=== PATIENT | female | born 1980 | race Caucasian/White ===

== ENCOUNTER 2020-01-19 22:30 | Emergency (ER) | payer SELFPAY ==
[~2020-01-19] VITALS: Ht 149.9 cm; Wt 110.2 kg
[~2020-01-19 22:30] MED LIST: ASPI-1822 PO; CARV3.12 PO; LISI10TA11 PO; SIMV20TA1 PO
--- NOTE | 2020-01-19 22:45 | NUR ---
PT AMBULATED TO BED 12 WITH STEADY GAIT.
--- NOTE | 2020-01-19 22:46 | NUR ---
PT C/O RT FLANK PAIN X 3 MONTHS 10/10. ADMITS TO NAUSEA BUT NO VOMIT. PER PT, HER PRIMARY DOCTOR TALK HER THAT SHE HAS A CYST. PT DENIES ANY FEVER, CP, SOB, OR COUGH AT THIS TIME; PATIENT STATES PAIN OF 10/10 AT THIS TIME; VSS; PATIENT POSITIONED FOR COMFORT; HOB ELEVATED; BEDRAILS UP X1; BED DOWN. ER MD MADE AWARE OF PT STATUS.
--- NOTE | 2020-01-19 22:53 | NUR ---
Dr. Trent examining patient.
[2020-01-19] MEDS ORDERED: KETOROLAC 30 MG/ML VIAL IVP ONE (23:00)
[2020-01-19] MEDS ORDERED: NACL 0.9% 1,000 ML IV ONE (23:00)
[2020-01-19 23:18] LABS: BASOPHILS % (AUTO) 0.3 % (0.0-2.0); EOSINOPHILS # (AUTO) 0.2 K/uL (0-0.4); EOSINOPHILS % (AUTO) 2.4 % (0.0-4.0); HEMATOCRIT 30.9 % (36-48); HEMOGLOBIN 10.3 g/dL (12.0-16.0); LYMPHOCYTES # (AUTO) 2.6 K/uL (2.5-16.5); LYMPHOCYTES % (AUTO) 31.5 % (20.5-51.1); MEAN CORPUSCULAR HEMOGLOBIN 31 pg (27-31); MEAN CORPUSCULAR HGB CONC 33 g/dL (33-37); MONOCYTES # (AUTO) 0.7 K/uL (0.8-1.0); MONOCYTES % (AUTO) 8.9 % (1.7-9.3); NEUTROPHILS # (AUTO) 4.6 K/uL (1.8-7.7); NEUTROPHILS % (AUTO) 56.9 % (42.2-75.2); PLATELET COUNT (AUTO) 232 K/uL (140-450); RED BLOOD CELL COUNT(AUTO) 3.36 MIL/uL (4.20-5.40); WHITE BLOOD COUNT (AUTO) 8.1 K/uL (4.8-10.8)
--- NOTE | 2020-01-19 23:21 | NUR ---
PT TAKEN TO CT
[2020-01-19 23:31] LABS: APPEARANCE,URINE CLEAR (CLEAR); BLOOD, URINE TRACE (NEGATIVE); COLOR,URINE YELLOW (YELLOW); UGLUCOSE NEGATIVE (NEGATIVE)
[2020-01-19 23:32] LABS: BILIRUBIN,URINE NEGATIVE (NEGATIVE); LEUKOCYTE ESTERASE ,URINE NEGATIVE (NEGATIVE); NITRITE, URINE NEGATIVE (NEGATIVE)
[2020-01-19 23:34] LABS: ANION GAP 17.6 (8-16); CARBON DIOXIDE 19.8 mmol/L (21-32); CREATININE 2.4 mg/dL (0.6-1.3); POTASSIUM 4.4 mmol/L (3.5-5.1); TOTAL BILIRUBIN 0.1 mg/dL (0.0-1.0)
[2020-01-19 23:41] LABS: RBC,URINE 0-5 /HPF (0-5)
--- NOTE | 2020-01-20 00:33 | NUR ---
Pt report given to JIMBO Hernandez. Transfer of care at this time.
[2020-01-20 01:35] VITALS: BP 128/85
--- NOTE | 2020-01-20 01:36 | NUR ---
Patient discharged with v/s stable. Written and verbal after care instructions given and explained. Patient verbalized understanding. Ambulatory with steady gait. All questions addressed prior to discharge. Advised to follow up with PMD.
== END 2020-01-20 01:36 | disposition home or self-care (01) ==
LOC: MED 22:30
DX: N18.9 Chronic kidney disease, unspecified (principal)
CPT/HCPCS: 36415; 74177; 80053; 81001; 81025; 85025; 87086; 96374; 99285; J1885; J7030; Q9967

== ENCOUNTER 2021-05-30 11:41 | Inpatient (IN) | payer MEDICAID, SELFPAY ==
[~2021-05-30] VITALS: Ht 144.8 cm; Wt 108.9 kg
[~2021-05-30 11:41] MED LIST changes: +LISI-486 PO; -LISI10TA11 PO
[2021-05-30 11:45] VITALS: BP 147/77
[2021-05-30 13:20] LABS: BASOPHILS % (AUTO) 0.1 % (0.0-2.0); EOSINOPHILS # (AUTO) 0.2 K/uL (0-0.4); HEMATOCRIT 24.4 % (36-48); HEMOGLOBIN 8.1 g/dL (12.0-16.0); LYMPHOCYTES # (AUTO) 1.9 K/uL (2.5-16.5); LYMPHOCYTES % (AUTO) 22.6 % (20.5-51.1); MEAN CORPUSCULAR HEMOGLOBIN 28 pg (27-31); MEAN CORPUSCULAR HGB CONC 33 g/dL (33-37); MEAN CORPUSCULAR VOLUME 83.1 fL (80-94); MONOCYTES # (AUTO) 0.6 K/uL (0.8-1.0); NEUTROPHILS # (AUTO) 5.7 K/uL (1.8-7.7); NEUTROPHILS % (AUTO) 68.3 % (42.2-75.2); PLATELET COUNT (AUTO) 286 K/uL (140-450); RED BLOOD CELL COUNT(AUTO) 2.93 MIL/uL (4.20-5.40); RED CELL DISTRIBUTION WIDTH 14.2 % (11.6-13.7); WHITE BLOOD COUNT (AUTO) 8.3 K/uL (4.8-10.8)
--- NOTE | 2021-05-30 13:29 | NUR ---
41/F BIB SELF FOR ABNORMAL LABS. STATES SHE WAS SEEN AT HER DOCTORS OFFICE ON 05/28/21 AND HAD LABS DRAWN AND HAD A HEMOGLOBIN OF 8.2, STATING HE WANTED HER LABS REDRAWN. PATIENT STATES SHE HAS BEEN INCREASINGLY MORE FATIGUED LATELY BUT DENIES CP, SOB, FEVER OR CHILLS. DENIES ANY PAIN, DIZZINESS OR BLURRED VISION, NO OTHER COMPLAINTS AT THIS TIME.
[2021-05-30 13:35] LABS: ALBUMIN 2.8 g/dL (3.4-5.0); ANION GAP 16.8 (8-16); CREATININE 2.6 mg/dL (0.6-1.3); POTASSIUM 4.8 mmol/L (3.5-5.1); TOTAL BILIRUBIN 0.1 mg/dL (0.0-1.0)
--- NOTE | 2021-05-30 14:20 | NUR ---
MANAGER INFORMATION AT BEDSIDE.
--- NOTE | 2021-05-30 14:20 | NUR ---
RAMON SWAB COLLECTED AND WALKED TO LAB.
--- NOTE | 2021-05-30 15:35 | NUR ---
PATIENT PLACED ON BEDSIDE TRADEMARK ATTORNEY, BED ADJUSTED FOR COMFORT, PROVIDED WARM BLANKET. WILL CONTINUE TO MONITOR.
[2021-05-30] MEDS ORDERED: DOCUSATE SODIUM 100 MG GELCAP PO PRN (16:10)
[2021-05-30] MEDS ORDERED: ONDANSETRON 4 MG/2 ML VIAL IVP PRN (16:10)
[2021-05-30] MEDS ORDERED: ZOLPIDEM 5 MG TAB PO PRN (16:10)
[2021-05-30] MEDS ORDERED: LORazepam 2 MG/ML VIAL IM/IVP PRN (16:10)
[2021-05-30] MEDS ORDERED: MORPHINE SULFATE 2 MG/ML SYR IVP PRN (16:10)
[2021-05-30] MEDS ORDERED: MAG SULF 2000 MG/WATER PREMIX 50 ML IV PRN (16:10)
[2021-05-30] MEDS ORDERED: POTASSIUM CHLORIDE 10 MEQ TABER PO PRN (16:10)
[2021-05-30] MEDS ORDERED: SODIUM PHOS / POTASSIUM PHOS 1 PKT PDR PO PRN (16:10)
[2021-05-30] MEDS ORDERED: HYDROcodone/APAP 5/325 MG 1 TAB TAB PO PRN (16:10)
--- NOTE | 2021-05-30 16:30 | NUR ---
PATIENT AMBULATED TO RESTROOM TO PROVIDE URINE SAMPLE.
[2021-05-30] MEDS: NACL 0.9% 1,000 ML IV SCH (16:48)
--- NOTE | 2021-05-30 17:10 | NUR ---
PATIENT PROVIDED SMALL AMOUNT OF URINE, SAMPLE WALKED TO LAB.
[2021-05-30 17:23] LABS: PROTHROMBIN TIME 9.1 secs (10.8-13.4)
[2021-05-30 17:26] LABS: CHOL/HDL RATIO 3.2 (1-4.5); FREE T4 (FREE THYROXINE) 0.95 ng/dL (0.76-1.46); PHOSPHORUS 4.3 mg/dL (2.5-4.9); THYROID STIMULATING HORMONE 2.84 uIU/mL (0.34-3.74)
--- NOTE | 2021-05-30 17:45 | NUR ---
PATIENT APPEARS TO BE RESTING, LIGHTS DIMMED FOR COMFORT. PT ON BEDSIDE POLYMERIZATION OVEN TENDER, WILL CONTINUE TO MONITOR.
--- NOTE | 2021-05-30 18:45 | NUR ---
PATIENT PROVIDED WITH DINNER TRAY, SITTING UP IN BED EATING. ON BEDSIDE JUNIOR WEB DESIGNER, ALL NEEDS MET AT THIS TIME.
[2021-05-30 19:03] LABS: APPEARANCE,URINE CLEAR (CLEAR); BILIRUBIN,URINE NEGATIVE (NEGATIVE); BLOOD, URINE TRACE-I (NEGATIVE); COLOR,URINE YELLOW (YELLOW); LEUKOCYTE ESTERASE ,URINE NEGATIVE (NEGATIVE); NITRITE, URINE NEGATIVE (NEGATIVE); UGLUCOSE NEGATIVE (NEGATIVE)
--- NOTE | 2021-05-30 19:17 | NUR ---
Pt report given to RAGINI CHOI. Transfer of care at this time.
[2021-05-30 19:46] LABS: BARBITURATE, URINE NEGATIVE ng/ml (NEG <=200); BENZODIAZEPINE, URINE NEGATIVE ng/mL (NEG <=200); CANNABINOID, URINE NEGATIVE ng/mL (NEG <=50); COCAINE, URINE NEGATIVE ng/mL (NEG <=300); OPIATE, URINE NEGATIVE ng/mL (NEG <=2000); PHENCYCLIDINE SCREEN,URINE NEGATIVE ng/mL (NEG <=25)
--- NOTE | 2021-05-30 20:20 | NUR ---
PATIENT ALERT ORIENTED NOT COMPLAINING OF PAIN VITALS SIGNS IN NORMAL LIMITS ABLE TO WALK AND GO THE RESTROOM BY HER SELF STABLE AT THIS TIME //Harvey CHOI
--- NOTE | 2021-05-30 20:52 | NUR ---
PATIENT ALERT ORIENT NOT COMPLAINING OF PAIN AT THIS TIME VITALS SIGNS IN NORMAL LIMITS STABLE ADMITED TO THE FLOOR ROOM 105 B REPORT AND ENDORSE OF CARE TO LYNN CHOI //Harvey RN
[2021-05-30 22:00] VITALS: BP 130/65
--- NOTE | 2021-05-30 22:00 | NUR ---
Admitted from ER TO TELEMETRY UNIT , with chief complaint of PER PCP SHE NEEDS BLOOD TRANSFUSION BECAUSE HER HEMOGLOBIN IS LOW, 41 y/o ,Female, Cooperative, AWAKE, A/OX4, URDU SPEAKING.RESPIRATION EVEN AND UNLABORED. LUNGS CLEAR ON BILATERAL AUSCULTATION. ABDOMEN SOFT, NON-TENDER WITH POSITIVE BOWEL SOUNDS ON ALL QUADRANTS. AMBULATORY BY HERSELF. HEAD TO TOE ASSESSMENT DONE WITH CHARGE NURSE HUGO, SKIN IS INTACT. DENIES PAIN 0/10. oriented to call light, bed, phone,television, bathroom, smoking policy,visiting hours, procedures, ID bracelet on. Belongings list checked. ADMISSION DATA AND PATIENT ORIENTATION AND INSTRUCTION DONE WITH HELP OF APPLICATIONS PROGRAMMER SAYDA #[id number]. PATIENT VERBALIZED UNDERSTANDING. DENIES PAIN 0/10.
[2021-05-31] VITALS: BP 129/61
--- NOTE | 2021-05-31 | NUR ---
COMPLAINED OF PAIN IN THE IV SITE. CHECKED WITH SALINE FLUSH WITH GOOD BACK FLOW. PUT ON A PILLOW FOR SUPPORT. INSTRUCTED PATIENT TO OBSERVE SITE AND CALL NURSE WHEN SOMETHING UNUSUAL IS NOTED. VERBALIZED UNDERSTANDING.
--- NOTE | 2021-05-31 00:19 | NUR ---
Patient's Plan of Care was discussed and reviewed with RAILROAD WATCHMAN: LYNN HARDIN
--- NOTE | 2021-05-31 02:00 | NUR ---
SLEEPING COMFORTABLY ON HER RIGHT SIDE. RESPIRATION EVEN AND UNLABORED.
[2021-05-31] MEDS: NACL 0.9% 1,000 ML IV SCH ×3 (02:30→22:10)
[2021-05-31 04:00] VITALS: BP 144/83
--- NOTE | 2021-05-31 04:00 | NUR ---
SR/SA ON TELE MONITORING. NO COMPLAINT OF CHEST PAIN 0/10.
[2021-05-31] MEDS: ACETAMINOPHEN 325 MG TAB PO PRN ×2 (06:09→11:56)
--- NOTE | 2021-05-31 06:20 | NUR ---
INFORMED DR. HOUSE, PATIENT WANTS TO TAKE HER HOME MEDICATION OF METOPROLOL 50 MG, 2 TABS IN THE MORNING AND IN THE EVENING. OK TO ORDER FOR PATIENT.
--- NOTE | 2021-05-31 07:35 | NUR ---
CONDITION REMAIN STABLE. ENDORSED TO AM SHIFT NURSE FOR CONTINUITY OF CARE.
--- NOTE | 2021-05-31 07:36 | NUR ---
RECEIVED PT FROM RACK ROOM WORKER NURSE. PT IS RESTING AND IV IS PATENT AND INTATC IN THE R AC 20G, RUNNING NS 100ML/H. PT BREASTHING IS EVEN AND UNLABORED. DENIES PAIN AT THE MOMENT. PT IS STABLE.
[2021-05-31 07:59] LABS: BASOPHILS % (AUTO) 0.1 % (0.0-2.0); EOSINOPHILS # (AUTO) 0.1 K/uL (0-0.4); HEMATOCRIT 24.6 % (36-48); HEMOGLOBIN 8.1 g/dL (12.0-16.0); LYMPHOCYTES # (AUTO) 1.6 K/uL (2.5-16.5); LYMPHOCYTES % (AUTO) 26.8 % (20.5-51.1); MEAN CORPUSCULAR HEMOGLOBIN 28 pg (27-31); MEAN CORPUSCULAR HGB CONC 33 g/dL (33-37); MEAN CORPUSCULAR VOLUME 83.9 fL (80-94); MONOCYTES # (AUTO) 0.4 K/uL (0.8-1.0); MONOCYTES % (AUTO) 6.8 % (1.7-9.3); NEUTROPHILS # (AUTO) 3.8 K/uL (1.8-7.7); NEUTROPHILS % (AUTO) 64.3 % (42.2-75.2); PLATELET COUNT (AUTO) 267 K/uL (140-450); RED BLOOD CELL COUNT(AUTO) 2.93 MIL/uL (4.20-5.40); RED CELL DISTRIBUTION WIDTH 14.2 % (11.6-13.7)
[2021-05-31 08:00] VITALS: BP 146/73
[2021-05-31 08:17] LABS: ALBUMIN 2.7 g/dL (3.4-5.0); ANION GAP 14.1 (8-16); CARBON DIOXIDE 24.4 mmol/L (21-32); CREATININE 2.5 mg/dL (0.6-1.3); MAGNESIUM 1.9 mg/dL (1.8-2.4); POTASSIUM 4.5 mmol/L (3.5-5.1); TOTAL BILIRUBIN 0.2 mg/dL (0.0-1.0)
[2021-05-31] MEDS: METOPROLOL 50 MG TAB PO SCH ×2 (08:51→20:35)
--- NOTE | 2021-05-31 11:56 | NUR ---
PT COMPLAINED OF HEADACHE WITH 3/10 PAIN. MEDICATED PER MD ORDER PRN MEDS.
[2021-05-31 12:00] VITALS: BP 144/86
--- NOTE | 2021-05-31 12:56 | NUR ---
PAIN REASSESSED. PT STATES THE PAIN MED WAS EFFECTIVE. DENIES PAIN.
--- NOTE | 2021-05-31 15:00 | NUR ---
PT SITTING IN CHAIR NEXT TO BED. BREATHING IS UNLABORED AND EVEN. PT IS STABLE.
[2021-05-31 15:30] LABS: URINE TOTAL PROTEIN 244.1 mg/dL (0-12)
[2021-05-31 16:00] VITALS: BP 152/85
--- NOTE | 2021-05-31 16:00 | NUR ---
STATED WANTS PT TO BE ON 100ML/H NS WELL HAVE THE PT DRINKING PLENTY OF FLUIDS WELL. PT UNDERSTANDS AND WILL DO HER BEST TO DRINK MORE WATER.
--- NOTE | 2021-05-31 19:25 | NUR ---
ENDORSED PT BEDSIDE TO SENIOR MAJOR GIFTS OFFICER NURSE FOR CONTINUITY OF CARE. EXPLAINED POC. PT IS STABLE.
--- NOTE | 2021-05-31 19:26 | NUR ---
RECD. RESTING IN BED, AWAKE, A/OX4. RESPIRATION EVEN AND UNLABORED. INDEPENDENT, AMBULATING TO THE BR AND IN THE HALLWAY. COMPLAINT THAT HER IV SITE AT THE RIGHT AC HAS PAIN, WANTS ANOTHER IV LINE TO BE INSERTED. MEDIATIONS FOR THE NIGHT DISCUSSED WITH PATIENT. ENCOURAGED TO DRINK MORE FLUIDS. VERBALIZED UNDERSTANDING. DENIES PAIN, 0/10.
[2021-05-31 20:00] VITALS: BP 153/83
--- NOTE | 2021-05-31 21:00 | NUR ---
TRIED TO INSERT NEW IV LINE AT THE LEFT FOREARM, NOT SUCCESSFUL. PATIENT IS A HARD STICK.
--- NOTE | 2021-05-31 22:14 | NUR ---
Patient's Plan of Care was discussed and reviewed with DEVELOPER PROGRAMMER ANALYST: LYNN HARDIN
--- NOTE | 2021-05-31 23:00 | NUR ---
NEW IV LINE INSERTED BY CHARGE NURSE HUGO AT THE RIGHT FOREARM G22.
--- NOTE | 2021-05-31 23:15 | NUR ---
RESTING IN BED, WATCHING TV. CONNECTED BACK TO IV OF NS. NO COMPLAINT OF PAIN 0/10. CALL LIGHT IN REACH.
[2021-06-01] VITALS: BP 132/80
--- NOTE | 2021-06-01 01:00 | NUR ---
RESTING IN BED, WATCHING TV. CALM AND RELAXED. RESPIRATION EVEN AND UNLABORED.
--- NOTE | 2021-06-01 02:54 | NUR ---
UNABLE TO SLEEP, MEDICATED WITH AMBIEN PER MD ORDER.
--- NOTE | 2021-06-01 03:55 | NUR ---
SLEEPING COMFORTABLY IN BED, RESPIRATION EVEN AND UNLABORED.
[2021-06-01 04:00] VITALS: BP 130/62
[2021-06-01 06:39] LABS: BASOPHILS % (AUTO) 0.3 % (0.0-2.0); EOSINOPHILS # (AUTO) 0.2 K/uL (0-0.4); EOSINOPHILS % (AUTO) 3.1 % (0.0-4.0); HEMATOCRIT 23.4 % (36-48); HEMOGLOBIN 7.7 g/dL (12.0-16.0); LYMPHOCYTES # (AUTO) 1.5 K/uL (2.5-16.5); LYMPHOCYTES % (AUTO) 24.9 % (20.5-51.1); MEAN CORPUSCULAR HEMOGLOBIN 27 pg (27-31); MEAN CORPUSCULAR HGB CONC 33 g/dL (33-37); MEAN CORPUSCULAR VOLUME 83.2 fL (80-94); MONOCYTES # (AUTO) 0.4 K/uL (0.8-1.0); MONOCYTES % (AUTO) 6.6 % (1.7-9.3); NEUTROPHILS # (AUTO) 3.9 K/uL (1.8-7.7); NEUTROPHILS % (AUTO) 65.1 % (42.2-75.2); PLATELET COUNT (AUTO) 255 K/uL (140-450); RED BLOOD CELL COUNT(AUTO) 2.81 MIL/uL (4.20-5.40); RED CELL DISTRIBUTION WIDTH 14.2 % (11.6-13.7)
[2021-06-01 06:41] LABS: ALBUMIN 2.4 g/dL (3.4-5.0); ANION GAP 13.9 (8-16); CREATININE 2.3 mg/dL (0.6-1.3); MAGNESIUM 1.8 mg/dL (1.8-2.4); POTASSIUM 4.9 mmol/L (3.5-5.1); TOTAL BILIRUBIN 0.1 mg/dL (0.0-1.0)
--- NOTE | 2021-06-01 07:10 | NUR ---
RECEIVED REPORT FROM POLE SHAVER HELPER NURSE FOR CONTINUITY OF CARE. PT IS AWAKE AND ALERT. A&OX4. ANSWERS QUESTIONS APPORPRIATELY. ON RA WITH BREATHING UNLABORED. AMBULATORY INDEPENDENTLY. SKIN IS WARM, DRY, AND INTACT. IV IS IN THE RIGHT FOREARM 22 GAUGE RUNNING NS AT 100 ML/HR. PT IS STABLE. PLAN OF CARE DISCUSSED.
[2021-06-01 08:00] VITALS: BP 141/76
--- NOTE | 2021-06-01 08:10 | NUR ---
PATIENT HAS BEEN SCREENED AND CATEGORIZED HIGH NUTRITION RISK. PATIENT WILL BE SEEN WITHIN 1-2 DAYS OF ADMISSION. 06/01/[address]
[2021-06-01] MEDS: NACL 0.9% 1,000 ML IV SCH (08:19)
[2021-06-01] MEDS: METOPROLOL 50 MG TAB PO SCH (09:14)
[2021-06-01] MEDS ORDERED: METO25TA PO (10:53)
[2021-06-01] MEDS ORDERED: FERR325E14 PO (10:53)
[2021-06-01 11:01] VITALS: BP 141/76
--- NOTE | 2021-06-01 11:45 | NUR ---
DISCHARGE INSTRUCTIONS EXPLAINED IN [place] BY THIRD CONSTITUTION PARTY. BOYFRIEND AT BEDSIDE. PT VERBALIZED UNDERSTANDING. PT IS AWAKE AND ALERT. NO DISTRESS NOTED. PT DENIES PAIN. INSTRUCTED HER TO FOLLOW UP WITH PCP, FOLLOW UP WITH DR. RANGEL WITH PHONE NUMBER PROVIDED, AND CALL BACK FOR PENDING LAB RESULTS. EXPLAINED WORSENING SIGNS AND SYMPTOMS AND WHEN TO RETURN TO THE ER. ID BAND WAS REMOVED. IV WAS REMOVED AND BLEEDING CONTROLLED. PT IS STABLE.
--- NOTE | 2021-06-01 12:00 | NUR ---
LABS PLACED FOR TOMORROW BY DR. RANGEL. ASKED DR. ALTMAN IF HE WANTS TO DRAW THE LABS BEFORE SHE IS DISCHARGED AND HE STATED YES AND TO DISCHARGE HER AFTER. HE ALSO STATED TO HAVE HER CALL BACK TO FOLLOW UP WITH THE RESULTS IN THREE DAYS. INFORMED PT AND NOW WAITING FOR LAB DRAW THEN DISCHARGE.
--- NOTE | 2021-06-01 12:30 | NUR ---
LABWORK WAS DRAWN AND PT WAS DISCHARGED FROM THE HOSPITAL INSTRUCTED. PT WAS ACCOMPANIED BY BOYFRIEND AND AMBULATED OUT OF THE HOSPITAL WITH STEADY GAIT.
[2021-06-02 09:07] LABS: HEPATITIS A ANTIBODY IGM Negative (Negative); HEPATITIS B CORE AB TOTAL Negative (Negative); HEPATITIS B SURFACE ANTIBODY Non Reactive (.); HEPATITIS B SURFACE ANTIGEN Negative (Negative)
== END 2021-06-01 12:35 | disposition home or self-care (01) | DRG 469 ==
LOC: MED 11:41 → MTU 15:10
PROVIDERS: ADMIT Family Medicine; ATTEND Family Medicine
DX: N17.0 Acute kidney failure with tubular necrosis (principal); E43 Unspecified severe protein-calorie malnutrition; E11.22 Type 2 diabetes mellitus with diabetic chronic kidney disease; Z68.43 Body mass index [BMI] 50.0-59.9, adult; D64.9 Anemia, unspecified; E78.5 Hyperlipidemia, unspecified; E66.01 Morbid (severe) obesity due to excess calories; Z20.822 Contact with and (suspected) exposure to COVID-19; I12.9 Hypertensive chronic kidney disease with stage 1 through stage 4 chronic kidney disease, or unspecified chronic kidney disease; N18.9 Chronic kidney disease, unspecified; Z90.710 Acquired absence of both cervix and uterus; Z90.49 Acquired absence of other specified parts of digestive tract; Z79.899 Other long term (current) drug therapy; Z79.82 Long term (current) use of aspirin; Z56.0 Unemployment, unspecified
CPT/HCPCS: 36415; 71045; 76770; 80053; 80305; 81003; 82150; 82570; 82595; 83036; 83690; 83735; 83880; 84100; 84165; 84439; 84443; 84484; 85025; 85610; 85730; 86038; 86160; 86592; 86704; 86706; 86708; 86709; 86803; 86886; 86900; 86901; 87081; 87340; 93005; 99285; Q0092

== ENCOUNTER 2023-03-18 09:44 | Inpatient (IN) | payer MEDICAID ==
[~2023-03-18] VITALS: Ht 137.2 cm; Wt 111.1 kg
[~2023-03-18 09:44] MED LIST changes: -ASPI-1822 PO; -CARV3.12 PO; +FERR325E14 PO; -LISI-486 PO; +METO25TA PO; +SIMV-372 PO; -SIMV20TA1 PO
[2023-03-18 09:59] VITALS: BP 161/90; PULSE 114; RESP 18; TEMP 97.8; O2SAT 100
[2023-03-18 11:41] LABS: BASOPHILS % (AUTO) 0.2 % (0.0-2.0); EOSINOPHILS # (AUTO) 0.1 K/uL (0-0.4); EOSINOPHILS % (AUTO) 1.9 % (0.0-4.0); HEMATOCRIT 22.9 % (36-48); HEMOGLOBIN 7.7 g/dL (12.0-16.0); LYMPHOCYTES # (AUTO) 1.3 K/uL (2.5-16.5); LYMPHOCYTES % (AUTO) 17.6 % (20.5-51.1); MEAN CORPUSCULAR HEMOGLOBIN 30 pg (27-31); MEAN CORPUSCULAR HGB CONC 34 g/dL (33-37); MEAN CORPUSCULAR VOLUME 88.8 fL (80-94); MONOCYTES # (AUTO) 0.4 K/uL (0.8-1.0); MONOCYTES % (AUTO) 5.4 % (1.7-9.3); NEUTROPHILS # (AUTO) 5.7 K/uL (1.8-7.7); NEUTROPHILS % (AUTO) 74.9 % (42.2-75.2); PLATELET COUNT (AUTO) 291 K/uL (140-450); RED BLOOD CELL COUNT(AUTO) 2.58 MIL/uL (4.20-5.40); RED CELL DISTRIBUTION WIDTH 13.5 % (11.6-13.7); WHITE BLOOD COUNT (AUTO) 7.6 K/uL (4.8-10.8)
[2023-03-18 11:57] LABS: ALANINE AMINOTRANSFERASE 18 U/L (12-78); ALKALINE PHOSPHATASE 117 U/L (50-136); ANION GAP 12.4 (8-16); ASPARTATE AMINOTRANSFERASE 16 U/L (15-37); CALCIUM 8.2 mg/dL (8.5-10.1); CHLORIDE 106 mmol/L (98-107); CREATININE 3.9 mg/dL (0.6-1.3); GFR ARICAN-AMERICAN 16 mL/min (>90); GFR NON ARICAN-AMERICAN 13 mL/min (>90); GLUCOSE 143 mg/dL (74-106); POTASSIUM 4.4 mmol/L (3.5-5.1); SODIUM SERUM 139 mmol/L (136-145); TOTAL BILIRUBIN 0.1 mg/dL (0.0-1.0); TOTAL PROTEIN, SERUM 7.1 g/dL (6.4-8.2); UREA NITROGEN, BLOOD 44 mg/dL (7-18)
[2023-03-18 12:45] LABS: BILIRUBIN,URINE NEGATIVE (NEGATIVE); BLOOD, URINE 3+ (NEGATIVE); COLOR,URINE YELLOW (YELLOW); LEUKOCYTE ESTERASE ,URINE NEGATIVE (NEGATIVE); NITRITE, URINE NEGATIVE (NEGATIVE); PROTEIN,URINE 2+ (NEGATIVE); UGLUCOSE TRACE (NEGATIVE); UROBILINOGEN,URINE 0.2 EU/dL (0.2 - 1)
[2023-03-18 12:46] LABS: APPEARANCE,URINE SLIGHTLY HAZY (CLEAR)
[2023-03-18 12:54] LABS: BACTERIA,URINE OCCASSIONAL /HPF (None Seen); SQUAMOUS EPITHELIAL CELL,UR 0-3 (FEW) /LPF (0-3 (FEW)); WBC,URINE 0-5 /HPF (0-5)
[2023-03-18 12:55] LABS: RBC,URINE >100 /HPF (0-5)
[2023-03-18] MEDS ORDERED: LISI10TA31 PO (13:52)
[2023-03-18] MEDS ORDERED: POTASSIUM CHLORIDE 10 MEQ TABER PO PRN (14:10)
[2023-03-18] MEDS ORDERED: LORazepam 2 MG/ML VIAL IVP PRN (14:10)
[2023-03-18] MEDS ORDERED: ONDANSETRON 4 MG/2 ML VIAL IVP PRN (14:10)
[2023-03-18] MEDS ORDERED: ZOLPIDEM 10 MG TAB PO PRN (14:10)
[2023-03-18] MEDS ORDERED: MORPHINE SULFATE 2 MG/ML SYR IVP PRN (14:10)
[2023-03-18] MEDS ORDERED: MAG SULF 2000 MG/WATER PREMIX 50 ML IV PRN (14:10)
[2023-03-18] MEDS ORDERED: DOCUSATE SODIUM 100 MG GELCAP PO PRN (14:10)
[2023-03-18] MEDS ORDERED: ACETAMINOPHEN 325 MG TAB PO PRN (14:10)
[2023-03-18] MEDS: NACL 0.9% 1,000 ML IV SCH (14:24)
[2023-03-18 15:41] VITALS: PULSE 77; RESP 17; O2SAT 99
[2023-03-18 16:00] VITALS: BP 113/67; PULSE 77; RESP 18; TEMP 96.5; O2SAT 96
[2023-03-18 20:00] VITALS: BP 118/65; PULSE 68; RESP 18; TEMP 97.2; O2SAT 95; O2SAT 98
[2023-03-18] MEDS: METOPROLOL 50 MG TAB PO SCH (21:31)
[2023-03-19] MEDS: NACL 0.9% 1,000 ML IV SCH ×3 (00:10→22:37)
[2023-03-19 04:00] VITALS: BP 121/60; PULSE 67; RESP 18; TEMP 97; O2SAT 95
[2023-03-19 06:43] LABS: BASOPHILS % (AUTO) 0.3 % (0.0-2.0); EOSINOPHILS # (AUTO) 0.2 K/uL (0-0.4); EOSINOPHILS % (AUTO) 2.8 % (0.0-4.0); LYMPHOCYTES # (AUTO) 1.6 K/uL (2.5-16.5); LYMPHOCYTES % (AUTO) 28.5 % (20.5-51.1); MEAN CORPUSCULAR HEMOGLOBIN 30 pg (27-31); MEAN CORPUSCULAR HGB CONC 33 g/dL (33-37); MEAN CORPUSCULAR VOLUME 89.5 fL (80-94); MONOCYTES # (AUTO) 0.4 K/uL (0.8-1.0); MONOCYTES % (AUTO) 6.2 % (1.7-9.3); NEUTROPHILS # (AUTO) 3.6 K/uL (1.8-7.7); NEUTROPHILS % (AUTO) 62.2 % (42.2-75.2); PLATELET COUNT (AUTO) 253 K/uL (140-450); RED CELL DISTRIBUTION WIDTH 13.6 % (11.6-13.7); WHITE BLOOD COUNT (AUTO) 5.7 K/uL (4.8-10.8)
[2023-03-19 07:01] LABS: HEMATOCRIT 19.7 % (36-48); HEMOGLOBIN 6.6 g/dL (12.0-16.0)
[2023-03-19 07:05] LABS: ANION GAP 14.5 (8-16); CALCIUM 7.7 mg/dL (8.5-10.1); CARBON DIOXIDE 21.5 mmol/L (21-32); CREATININE 3.9 mg/dL (0.6-1.3)
[2023-03-19 08:08] LABS: FOLIC ACID 6.7 ng/mL (>3.0)
[2023-03-19] MEDS: FERROUS SULFATE 325 MG TABEC PO SCH ×2 (08:15→15:57)
[2023-03-19] MEDS: METOPROLOL 50 MG TAB PO SCH ×2 (08:16→22:31)
[2023-03-19 09:12] VITALS: BP 119/50; PULSE 80; RESP 17; TEMP 97.9; O2SAT 99
[2023-03-19 09:17] VITALS: RESP 17; O2SAT 99
[2023-03-19 10:35] LABS: BASOPHILS % (AUTO) 0.4 % (0.0-2.0); EOSINOPHILS # (AUTO) 0.2 K/uL (0-0.4); EOSINOPHILS % (AUTO) 3.1 % (0.0-4.0); HEMATOCRIT 22.3 % (36-48); HEMOGLOBIN 7.4 g/dL (12.0-16.0); LYMPHOCYTES # (AUTO) 1.6 K/uL (2.5-16.5); LYMPHOCYTES % (AUTO) 23.9 % (20.5-51.1); MEAN CORPUSCULAR HEMOGLOBIN 30 pg (27-31); MEAN CORPUSCULAR HGB CONC 33 g/dL (33-37); MEAN CORPUSCULAR VOLUME 90.4 fL (80-94); MONOCYTES # (AUTO) 0.4 K/uL (0.8-1.0); MONOCYTES % (AUTO) 6.6 % (1.7-9.3); NEUTROPHILS # (AUTO) 4.4 K/uL (1.8-7.7); PLATELET COUNT (AUTO) 308 K/uL (140-450); RED BLOOD CELL COUNT(AUTO) 2.46 MIL/uL (4.20-5.40); RED CELL DISTRIBUTION WIDTH 13.8 % (11.6-13.7); WHITE BLOOD COUNT (AUTO) 6.7 K/uL (4.8-10.8)
[2023-03-19] MEDS ORDERED: EPOETIN ALFA 10,000 UNITS/ML VIAL IV SCH (13:55)
[2023-03-19 16:20] VITALS: BP 108/58; PULSE 69; RESP 18; TEMP 97.4; O2SAT 99
[2023-03-19 17:59] LABS: URINE TOTAL PROTEIN 92.6 mg/dL (0-12); URINE TPRO CREAT RATIO 2.1 (0-0.20)
[2023-03-19 20:00] VITALS: BP 126/67; PULSE 86; RESP 19; TEMP 97; O2SAT 99
[2023-03-20] MEDS: NACL 0.9% 1,000 ML IV SCH (06:10)
[2023-03-20 07:12] LABS: BASOPHILS % (AUTO) 0.3 % (0.0-2.0); EOSINOPHILS # (AUTO) 0.3 K/uL (0-0.4); EOSINOPHILS % (AUTO) 3.9 % (0.0-4.0); HEMATOCRIT 20.1 % (36-48); LYMPHOCYTES # (AUTO) 1.9 K/uL (2.5-16.5); LYMPHOCYTES % (AUTO) 26.7 % (20.5-51.1); MEAN CORPUSCULAR HEMOGLOBIN 30 pg (27-31); MEAN CORPUSCULAR HGB CONC 34 g/dL (33-37); MONOCYTES # (AUTO) 0.4 K/uL (0.8-1.0); MONOCYTES % (AUTO) 5.5 % (1.7-9.3); NEUTROPHILS # (AUTO) 4.4 K/uL (1.8-7.7); NEUTROPHILS % (AUTO) 63.6 % (42.2-75.2); PLATELET COUNT (AUTO) 275 K/uL (140-450); RED BLOOD CELL COUNT(AUTO) 2.24 MIL/uL (4.20-5.40); RED CELL DISTRIBUTION WIDTH 13.6 % (11.6-13.7); WHITE BLOOD COUNT (AUTO) 6.9 K/uL (4.8-10.8)
[2023-03-20 07:28] LABS: HEMOGLOBIN 6.8 g/dL (12.0-16.0)
[2023-03-20 07:34] LABS: ANION GAP 14.4 (8-16); CALCIUM 7.8 mg/dL (8.5-10.1); CARBON DIOXIDE 20.2 mmol/L (21-32); CREATININE 3.7 mg/dL (0.6-1.3); POTASSIUM 5.6 mmol/L (3.5-5.1)
[2023-03-20] MEDS: METOPROLOL 50 MG TAB PO SCH ×2 (08:13→21:39)
[2023-03-20] MEDS: FERROUS SULFATE 325 MG TABEC PO SCH ×2 (08:14→16:01)
[2023-03-20 08:54] VITALS: RESP 16; O2SAT 97
[2023-03-20 08:58] VITALS: BP 117/58; PULSE 80; RESP 16; TEMP 97.1; O2SAT 97
[2023-03-20] MEDS ORDERED: SODIUM ZIRCONIUM CYCLOSILICATE 10 GM POWD.PACK PO SCH (13:20)
[2023-03-20 16:14] VITALS: BP 127/70; PULSE 83; RESP 18; TEMP 98.5; O2SAT 98
[2023-03-20 20:00] VITALS: BP 122/67; PULSE 94; RESP 18; TEMP 97.6; O2SAT 99
[2023-03-20 21:29] LABS: HEMATOCRIT 22.8 % (36-48)
[2023-03-20 21:37] LABS: HEMOGLOBIN 7.6 g/dL (12.0-16.0)
[2023-03-21 06:30] LABS: BASOPHILS % (AUTO) 0.2 % (0.0-2.0); EOSINOPHILS # (AUTO) 0.3 K/uL (0-0.4); EOSINOPHILS % (AUTO) 3.6 % (0.0-4.0); HEMATOCRIT 23.3 % (36-48); HEMOGLOBIN 7.8 g/dL (12.0-16.0); LYMPHOCYTES # (AUTO) 1.9 K/uL (2.5-16.5); LYMPHOCYTES % (AUTO) 24.6 % (20.5-51.1); MEAN CORPUSCULAR HEMOGLOBIN 30 pg (27-31); MEAN CORPUSCULAR HGB CONC 33 g/dL (33-37); MEAN CORPUSCULAR VOLUME 88.1 fL (80-94); MONOCYTES # (AUTO) 0.4 K/uL (0.8-1.0); MONOCYTES % (AUTO) 5.6 % (1.7-9.3); PLATELET COUNT (AUTO) 277 K/uL (140-450); RED BLOOD CELL COUNT(AUTO) 2.65 MIL/uL (4.20-5.40); RED CELL DISTRIBUTION WIDTH 14.2 % (11.6-13.7); WHITE BLOOD COUNT (AUTO) 7.6 K/uL (4.8-10.8)
[2023-03-21 06:56] LABS: CALCIUM 8.2 mg/dL (8.5-10.1); CARBON DIOXIDE 20.9 mmol/L (21-32); CREATININE 3.7 mg/dL (0.6-1.3); POTASSIUM 4.9 mmol/L (3.5-5.1)
[2023-03-21] MEDS: FERROUS SULFATE 325 MG TABEC PO SCH (08:08)
[2023-03-21] MEDS: METOPROLOL 50 MG TAB PO SCH (08:09)
[2023-03-21 09:26] VITALS: BP 118/78; PULSE 82; RESP 17; TEMP 97.4; O2SAT 98
[2023-03-21 09:27] VITALS: RESP 17; O2SAT 98
[2023-03-21] MEDS ORDERED: FERR325E14 PO (12:15)
[2023-03-21 12:59] VITALS: BP 118/78; PULSE 82; RESP 17; TEMP 97.4
== END 2023-03-21 14:20 | disposition home or self-care (01) | DRG 532 ==
LOC: MED 09:44 → MTU 13:55
PROVIDERS: ADMIT General Practice; ATTEND General Practice
PROC: 30233N1 Transfusion of Nonautologous Red Blood Cells into Peripheral Vein, Percutaneous Approach (ICD-10-PCS; principal; 2023-03-20)
DX: D25.9 Leiomyoma of uterus, unspecified (principal); I12.0 Hypertensive chronic kidney disease with stage 5 chronic kidney disease or end stage renal disease; E44.1 Mild protein-calorie malnutrition; Z68.43 Body mass index [BMI] 50.0-59.9, adult; N93.9 Abnormal uterine and vaginal bleeding, unspecified; D50.0 Iron deficiency anemia secondary to blood loss (chronic); N18.5 Chronic kidney disease, stage 5; E66.9 Obesity, unspecified; I95.1 Orthostatic hypotension; N28.1 Cyst of kidney, acquired; Z90.49 Acquired absence of other specified parts of digestive tract; Z98.51 Tubal ligation status
CPT/HCPCS: 36415; 36430; 76770; 76830; 80048; 80053; 81001; 82570; 82607; 82728; 82746; 83036; 83540; 83735; 84100; 84484; 85018; 85025; 86886; 86900; 86901; 86920; 87081; 93005; 99285; J0885; J2270; J2405; J3475; P9016; Q0092